=== PATIENT | female | born 1970 | race Caucasian/White ===

== ENCOUNTER 2018-07-27 18:31 | Emergency (ER) | payer BC ==
[2018-07-27 18:46] VITALS: O2SAT 96
[2018-07-27] MEDS ORDERED: Sodium Chloride 0.9% 1,000 ML IV STA (19:43)
[2018-07-27 20:15] LABS: BASO # 0.1 K/uL (0.0-0.2); EOS # 0.3 K/uL (0.0-0.7); EOS % 5.7 % (0.0-4.0); HEMOGLOBIN 13.9 g/dL (12.0-16.0); LYMPH # 2.7 K/uL (1.0-4.3); LYMPH % 46.8 % (20.0-40.0); MEAN CELL VOLUME 80.4 fl (81.0-99.0); MEAN CORPUSCULAR HGB CONC 32.4 g/dL (33.0-37.0); MEAN PLATELET VOLUME 9.1 fl (7.2-11.7); MONO # 0.3 K/uL (0.0-0.8); MONO % 5.1 % (0.0-10.0); NEUT # 2.4 K/uL (1.8-7.0); NEUT % 41.4 % (50.0-75.0); NRBC % 0.1 % (0.0-0.0); RBC 5.35 Mil/uL (3.80-5.20); RED CELL DISTRIBUTION WIDTH 13.6 % (11.5-14.5); WHITE BLOOD COUNT 5.8 K/uL (4.8-10.8)
[2018-07-27 20:32] LABS: ALB/GLOB RATIO 0.9 (1.0-2.1); ALT/SGPT 41 U/L (9-52); AST/SGOT 36 U/L (14-36); BLOOD UREA NITROGEN 17 mg/dl (7-17); CALCIUM 9.6 mg/dL (8.4-10.2); GFR NON-AFRICAN AMERICAN > 60
--- NOTE | 2018-07-27 20:33 | ED PDOC ---
HPI: General Adult Time Seen by Provider: 07/27/18 19:20 Chief Complaint (Nursing): Chest Pain Chief Complaint (Provider): chest pain and back pain History Per: Patient History/Exam Limitations: no limitations Onset/Duration Of Symptoms: Days (x2) Current Symptoms Are (Timing): Still Present Additional Complaint(s): 48 year old female with a history of hypothyroidism, dyslipidemia, hypertension and diabetes presents to the ED for chest pain and back pain onset yesterday. Patient reports she has been noncompliant with her medications for 3 months. Yesterday, she developed intermittent, sharp, and stabbing right flank pain. Today, she developed chest discomfort, but there is significantly more pain in her right flank. She denies urinary symptoms or any other medical complaints. PMD: Dr. Gloria Past Medical History Reviewed: Historical Data, Nursing Documentation, Vital Signs Vital Signs: Last Vital Signs Temp 98.5 F 07/27/18 18:44 Pulse 70 07/27/18 18:44 Resp 18 07/27/18 18:44 BP 135/84 07/27/18 18:44 Pulse Ox 96 07/27/18 20:34 - Medical History PMH: Arthritis, Diabetes, HTN, Hyperthyroidism Other PMH: dyslipidemia - Surgical History Surgical History: Appendectomy - Family History Family History: States: Unknown Family Hx - Social History Current smoker - smoking cessation education provided: No Ex-Smoker (has not smoked in the last 12 months): No Alcohol: None Drugs: Denies - Immunization History Hx Influenza Vaccination: No Hx Pneumococcal Vaccination: No - Home Medications Home Medications: Ambulatory Orders Medication Instructions Recorded Ergocalciferol (Vitamin D2) 1.25 mg PO QD7 11/21/14 [Vitamin D2] Hydrochlorothiazide 12.5 mg PO DAILY 11/21/14 Ibuprofen 800 mg PO DAILY 11/21/14 Levothyroxine Sodium 25 mcg PO DAILY 11/21/14 [Levothyroxine] Losartan Potassium 50 mg PO DAILY 11/21/14 Metformin Hydrochloride [Metformin 500 mg PO BID 11/21/14 HCl] Rosuvastatin Calcium [Crestor] 5 mg PO HS 11/21/14 Ciprofloxacin [Cipro] 500 mg PO Q12 #14 tab 07/27/18 - Allergies Allergies/Adverse Reactions: Allergies Allergy/AdvReac Type Severity Reaction Status Date / Time naproxen Allergy RASH Verified 07/27/18 18:44 Review of Systems ROS Statement: Except As Marked, All Systems Reviewed And Found Negative Cardiovascular: Positive for: Chest Pain Genitourinary Female: Positive for: Other (right flank pain ) Physical Exam - Reviewed Nursing Documentation Reviewed: Yes Vital Signs Reviewed: Yes - Physical Exam Appears: Positive for: Uncomfortable Head Exam: Positive for: ATRAUMATIC, NORMOCEPHALIC Skin: Positive for: Normal Color, Warm, Dry Eye Exam: Positive for: Normal appearance, EOMI, PERRL ENT: Positive for: Normal ENT Inspection Neck: Positive for: Normal Cardiovascular/Chest: Positive for: Regular Rate, Rhythm. Negative for: Murmur Respiratory: Positive for: Normal Breath Sounds. Negative for: Respiratory Distress Gastrointestinal/Abdominal: Positive for: Normal Exam, Soft. Negative for: Tenderness Back: Negative for: L CVA Tenderness, R CVA Tenderness Extremity: Positive for: Normal ROM (upper and lower). Negative for: Pedal Edema, Deformity Neurologic/Psych: Positive for: Alert, Oriented (x3) - Laboratory Results Result Diagrams: 07/27/18 20:07 07/27/18 20:07 - ECG O2 Sat by Pulse Oximetry: 96 (RA) Pulse Ox Interpretation: Normal Medical Decision Making Medical Decision Making: Time: 1926 Initial Impression: 48 yo with right flank pain Initial Plan: --labs --CT renal --Toradol Time: 2133 CT renal: FINDINGS: Lower thorax: No pulmonary airspace consolidation or pleural fluid collection in the imaged portion of the thorax. ABDOMEN: Liver: Diffuse fatty infiltration of the liver. Hepatomegaly, measuring 19 cm in craniocaudal dimension in the mid-clavicular line. Gallbladder and bile ducts: No acute findings. No radiopaque gallstones. Pancreas: No acute findings. Spleen: No acute findings. Adrenals: No acute findings. Kidneys and ureters: No acute findings. No urinary tract dilation or radiopaque urinary tract calculi. No perinephric fat stranding. Stomach and bowel: No bowel obstruction or other evident acute abnormality of the stomach, small bowel, or colon. Appendix: Status post appendectomy. PELVIS: Bladder: No acute findings. Reproductive: No evident acute abnormality of the gynecologic structures. ABDOMEN and PELVIS: Intraperitoneal space: No free intraperitoneal fluid or air. Bones/joints: No evident acute fracture or suspicious osseous lesion. Soft tissues: No acute findings. Vasculature: No acute findings. The abdominal aorta is normal in caliber. Bilateral pelvic phleboliths. Lymph nodes: Enlarged right inguinal lymph node that measures 4 x 1.4 cm in axial dimensions (series 3, image 180). IMPRESSION: 1. No hydronephrosis or radiopaque urinary tract calculus. 2. Hepatomegaly. Diffuse fatty infiltration of the liver. 3. Enlarged right inguinal lymph node, nonspecific in nature. 4. Additional nonacute findings as described above. Time: 2200 --Labs reviewed and show no clinically significant abnormalities with exception of urine, which is indicative of UTI. Patient was stable for discharge home. Patient encouraged to resume he medications as prescribed for hypothyroidism, dm , hypertension and high cholesterol. Patient will follow up with her PMD in 1-2 days. Diagnosis UTI. Scribe Attestation: Documented by Angie Stark, acting as a scribe for Noel Clayton MD Provider Scribe Attestation: All medical record entries made by the Scribe were at my direction and personally dictated by me. I have reviewed the chart and agree that the record accurately reflects my personal performance of the history, physical exam, medical decision making, and the department course for this patient. I have also personally directed, reviewed, and agree with the discharge instructions and disposition. Disposition - Clinical Impression Clinical Impression: UTI (urinary tract infection) - Disposition Disposition Time: 22:00 Condition: STABLE Prescriptions: Ciprofloxacin [Cipro] 500 mg PO Q12 #14 tab Instructions: Urinary Tract Infections in Adults Forms: [employer] (Belgian)
[2018-07-27 23:01] VITALS: BP 136/71; PULSE 60; RESP 16; TEMP 98
--- NOTE | 2018-07-28 06:24 | CARD ---
APPROVED REPORT Date of service: 07/27/2018 EKG Measurement Heart [id number] IN 130P14 [id number] <Conclusion> Normal sinus rhythm Normal Electrocardiogram
--- NOTE | 2018-07-28 15:28 | CT ---
Date of service: 07/27/2018 PROCEDURE: CT Abdomen and Pelvis without intravenous contrast HISTORY: renal colic COMPARISON: None. TECHNIQUE: Technique. Contrast dose: None Radiation dose: Total exam DLP = 932 mGy-cm. This CT exam was performed using one or more of the following dose reduction techniques: Automated exposure control, adjustment of the mA and/or kV according to patient size, and/or use of iterative reconstruction technique. FINDINGS: LOWER THORAX: Unremarkable. LIVER: Diffuse fatty infiltration in a prominent liver suggested. . No gross lesion or ductal dilatation. GALLBLADDER AND BILE DUCTS: Unremarkable. PANCREAS: Unremarkable. No gross lesion or ductal dilatation. SPLEEN: Unremarkable. ADRENALS: Unremarkable. No mass. KIDNEYS AND URETERS: Unremarkable. No hydronephrosis. No solid mass. VASCULATURE: Unremarkable. No aortic aneurysm. BOWEL: Unremarkable. No obstruction. No gross mural thickening. APPENDIX: Non identified given the hyperdensities -likely surgical clips in the vicinity -prior appendectomy inferred. PERITONEUM: Unremarkable. No free fluid. No free air. LYMPH NODES: In the right groin any elongated yet fatty hilum appearing lymph node is present given the fatty hilum it still bleed probably a benign incidental finding. This measures 3.5 cm in length with an AP dimension of 9 mm. BLADDER: Unremarkable. REPRODUCTIVE: Unremarkable. BONES: No acute fracture. OTHER FINDINGS: None. IMPRESSION: Inferred appendectomy. No bowel obstruction or free air. He Right groin elongated yet benign-appearing inguinal lymph node. Hepatic steatosis and mild the prominent liver size. Other findings as above. Concordant results (preliminary interpretation) provided by [employer].
== END 2018-07-27 22:00 | disposition home or self-care (01) ==
LOC: H.ER 18:31
DX: N39.0 Urinary tract infection, site not specified (principal); E03.9 Hypothyroidism, unspecified; E05.90 Thyrotoxicosis, unspecified without thyrotoxic crisis or storm; E11.9 Type 2 diabetes mellitus without complications; E78.5 Hyperlipidemia, unspecified; I10 Essential (primary) hypertension; Z79.84 Long term (current) use of oral hypoglycemic drugs; Z91.14 Patient's other noncompliance with medication regimen
CPT/HCPCS: 74176; 80053; 81025; 82948; 84484; 85025; 93005; 96374; 99284; J1885; J7030

== ENCOUNTER 2018-09-03 11:35 | Emergency (ER) | payer BC ==
[2018-09-03 11:40] VITALS: RESP 18; TEMP 97.7
--- NOTE | 2018-09-03 12:07 | ED PDOC ---
HPI: Female Pain Time Seen by Provider: 09/03/18 11:57 Chief Complaint (Nursing): Female Genitourinary Chief Complaint (Provider): vaginal bleeding dizziness History Per: Patient History/Exam Limitations: no limitations Onset/Duration Of Symptoms: Hrs (1), Sudden Onset Quality Of Discomfort: denies: Aching, Cramping, Pressure, Stabbing Associated Symptoms: Other (dizzy). denies: Nausea, Vomiting, Diarrhea, Constipation, Urinary Symptoms Additional Complaint(s): 48yo female thought to be post menopausal (states would have minimal menstrual bleeding every few months over last 2 years), presents c/o dizziness this morning while at work. Thought her blood sugar was low, went to get orange juice, getting off elevator became more dizzy, while walking outside felt more lightheaded and friend noticed bleeding on her leg, states had large blood loss on sidewalk she believes vaginally. States has occassional rectal bleeding but does not believe this is rectal bleeding. Denies abd or pelvic pain, urinary symptoms, diarrhea or SOB. Sees Dr Perez annually next [facility] appt in october. Abnormal Vaginal Bleeding: Yes Last Menstral Period: 2 yrs ago Past Medical History Reviewed: Historical Data, Nursing Documentation, Vital Signs Vital Signs: Last Vital Signs Temp 97.7 F 09/03/18 11:37 Pulse 58 L 09/03/18 11:37 Resp 18 09/03/18 11:37 BP 138/77 09/03/18 11:37 Pulse Ox 100 09/03/18 11:37 - Medical History PMH: Arthritis, Diabetes, HTN, Hyperthyroidism - Surgical History Surgical History: Appendectomy - Family History Family History: States: Unknown Family Hx - Living Arrangements Living Arrangements: With Family - Social History Current smoker - smoking cessation education provided: No - Immunization History Hx Influenza Vaccination: No Hx Pneumococcal Vaccination: No - Home Medications Home Medications: Ambulatory Orders Medication Instructions Recorded Ergocalciferol (Vitamin D2) 1.25 mg PO QD7 11/21/14 [Vitamin D2] Hydrochlorothiazide 12.5 mg PO DAILY 11/21/14 Ibuprofen 800 mg PO DAILY 11/21/14 Levothyroxine Sodium 25 mcg PO DAILY 11/21/14 [Levothyroxine] Losartan Potassium 50 mg PO DAILY 11/21/14 Metformin Hydrochloride [Metformin 500 mg PO BID 11/21/14 HCl] Rosuvastatin Calcium [Crestor] 5 mg PO HS 11/21/14 Ciprofloxacin [Cipro] 500 mg PO Q12 #14 tab 07/27/18 - Allergies Allergies/Adverse Reactions: Allergies Allergy/AdvReac Type Severity Reaction Status Date / Time naproxen Allergy RASH Verified 07/27/18 18:44 Review of Systems ROS Statement: Except As Marked, All Systems Reviewed And Found Negative Constitutional: Negative for: Fever ENT: Negative for: Nose Discharge Cardiovascular: Positive for: Light Headedness. Negative for: Chest Pain Respiratory: Negative for: Cough, Shortness of Breath Gastrointestinal: Negative for: Abdominal Pain Genitourinary Female: Positive for: Vaginal Bleeding. Negative for: Dysuria, Pelvic Pain Skin: Negative for: Rash, Lesions Neurological: Positive for: Dizziness. Negative for: Weakness, Numbness Psych: Negative for: Anxiety Physical Exam - Reviewed Nursing Documentation Reviewed: Yes Vital Signs Reviewed: Yes - Physical Exam Appears: Positive for: Well, Non-toxic, No Acute Distress Head Exam: Positive for: ATRAUMATIC, NORMAL INSPECTION, NORMOCEPHALIC Skin: Positive for: Warm, Pallor Eye Exam: Positive for: EOMI, Normal appearance, PERRL ENT: Positive for: Normal ENT Inspection Neck: Positive for: Normal, Painless ROM Cardiovascular/Chest: Positive for: Regular Rate, Rhythm Respiratory: Positive for: CNT, Normal Breath Sounds Gastrointestinal/Abdominal: Positive for: Normal Exam, Soft Pelvic Exam: Positive for: External Exam Normal, Blood, Other (poor visualization cervix due to body habitus and lack of large speculum available) Back: Positive for: Normal Inspection Extremity: Positive for: Normal ROM Neurologic/Psych: Positive for: Alert, Oriented - Laboratory Results Result Diagrams: 09/03/18 12:10 09/03/18 12:10 - ECG O2 Sat by Pulse Oximetry: 100 Medical Decision Making Medical Decision Making: labs reviewed and hgb normal UCG neg US: Accession No. : [id number] Patient Name / ID : YONATHAN LIRIANO / [id number] Exam Date : 09/03/2018 14:40:37 ( Approved ) Study Comment : Sex / Age : F / 48Y Creator : Bill Mclaughlin MD Dictator : Bill Mclaughlin MD Mixer And Blender : Cartoonist Special Effects : Bill Mclaughlin MD Approver2 : Report Date : 09/03/2018 16:12:26 My Comment : This report is currently processing and HAS NOT BEEN OFFICIALLY SIGNED BY THE PHYSICIAN - ESTIMATED TIME OF APPROVAL IS 09/03/2018 16:17. Date of service: 09/03/2018 HISTORY: Postmenopausal bleeding. LMP 2 years ago. COMPARISON: None available. TECHNIQUE: Transabdominal, transvaginal. Real -time technique with 2D, duplex and color Dop pler. FINDINGS: UTERUS: Measures 4.2 x 6.1 x 11.7 cm. Normal in size and appearance. No fibroid or other mass lesion seen. ENDOMETRIUM: Measures 12.9 mm in diameter. Endometrial hypertrophy. CERVIX: No cervical abnormality identified. RIGHT OVARY: Measures 1.8 x 2.6 x 3.3 cm. No solid mass. Normal flow. LEFT OVARY: Measures 1.8 x 1.3 x 2.5 cm. No solid mass. Normal flow. FREE FLUID: No significant free fluid noted. OTHER FINDINGS: None. IMPRESSION: Endometrial hypertrophy. In a postmenopausal individual endometrial thickness should not exceed 5 mm. Unremarkable adnexa. 415p patient states bleeding improved and feels better, only hungry. Dr Perez paged to inform for outpatient followup, CASE DISCUSSED DC from ED instructions and indications for return ER discussed Disposition - Clinical Impression Clinical Impression: Post-menopausal bleeding - Patient ED Disposition Is Patient to be Admitted: No Counseled Patient/Family Regarding: Studies Performed, Diagnosis, Need For Followup - Disposition Referrals: Agueda Perez MD [Staff Provider] - Disposition: Routine/Home Disposition Time: 16:15 Condition: STABLE Additional Instructions: FOLLOWUP WITH [facility] DR PEREZ NEXT WEEK. RETURN TO ER FOR ANY WEAKNESS, SHORTNESS OF BREATH, PAIN, FEVER, WORSE BLEEDING OR ANY CONCERN. ALL POSTMENOPAUSAL VAGINAL BLEEDING REQUIRES WORKUP WITH YOUR [facility] DOCTOR TO ASSURE ITS NOT EARLY CANCER. Instructions: Heavy Periods (DC) Forms: [employer] (Greenlandic)
[2018-09-03 12:17] LABS: BASO # 0.1 K/uL (0.0-0.2); EOS # 0.7 K/uL (0.0-0.7); EOS % 10.3 % (0.0-4.0); HEMOGLOBIN 14.2 g/dL (12.0-16.0); LYMPH # 2.8 K/uL (1.0-4.3); LYMPH % 44.4 % (20.0-40.0); MEAN CORPUSCULAR HEMOGLOBIN 26.3 pg (27.0-31.0); MEAN CORPUSCULAR HGB CONC 32.9 g/dL (33.0-37.0); MEAN PLATELET VOLUME 8.7 fl (7.2-11.7); MONO # 0.3 K/uL (0.0-0.8); MONO % 4.5 % (0.0-10.0); NEUT # 2.5 K/uL (1.8-7.0); NEUT % 39.8 % (50.0-75.0); RBC 5.41 Mil/uL (3.80-5.20); RED CELL DISTRIBUTION WIDTH 13.7 % (11.5-14.5); WHITE BLOOD COUNT 6.4 K/uL (4.8-10.8)
[2018-09-03 12:46] LABS: ALBUMIN 4.1 g/dL (3.5-5.0); ALT/SGPT 43 U/L (9-52); AST/SGOT 34 U/L (14-36); BLOOD UREA NITROGEN 16 mg/dl (7-17); CALCIUM 9.6 mg/dL (8.4-10.2); GFR NON-AFRICAN AMERICAN > 60
[2018-09-03 13:10] LABS: PARTIAL THROMBOPLASTIN TIME 33.4 Seconds (25.6-37.1)
--- NOTE | 2018-09-03 16:16 | US ---
Date of service: 09/03/2018 HISTORY: Postmenopausal bleeding. LMP 2 years ago. COMPARISON: None available. TECHNIQUE: Transabdominal, transvaginal. Real -time technique with 2D, duplex and color Doppler. FINDINGS: UTERUS: Measures 4.2 x 6.1 x 11.7 cm. Normal in size and appearance. No fibroid or other mass lesion seen. ENDOMETRIUM: Measures 12.9 mm in diameter. Endometrial hypertrophy. CERVIX: No cervical abnormality identified. RIGHT OVARY: Measures 1.8 x 2.6 x 3.3 cm. No solid mass. Normal flow. LEFT OVARY: Measures 1.8 x 1.3 x 2.5 cm. No solid mass. Normal flow. FREE FLUID: No significant free fluid noted. OTHER FINDINGS: None. IMPRESSION: Endometrial hypertrophy. In a postmenopausal individual endometrial thickness should not exceed 5 mm. Unremarkable adnexa.
[2018-09-03 16:27] VITALS: BP 111/73; PULSE 70
[2018-09-03 16:35] VITALS: O2SAT 100
== END 2018-09-03 16:25 | disposition home or self-care (01) ==
LOC: H.ER 11:35
DX: N95.0 Postmenopausal bleeding (principal); E05.90 Thyrotoxicosis, unspecified without thyrotoxic crisis or storm; E11.9 Type 2 diabetes mellitus without complications; I10 Essential (primary) hypertension; Z79.84 Long term (current) use of oral hypoglycemic drugs